=== PATIENT | male | born 1965 | race Caucasian/White ===

== ENCOUNTER → 2016-03-19 | Outpatient (CLI) | payer OTHER ==
--- NOTE | 2016-03-19 08:57 | DX ---
Left Knee , 3 weightbearing views, including a sunrise view History: Pain times several weeks Findings: No fracture deformity, effusion or arthritis is identified. There is no radiopaque foreign material. Overall mineralization is normal. The patellofemoral joint looks normal. Impression: No source for pain identified.
== END ==
LOC: BMCIMAGING 08:16
PROVIDERS: ATTEND Physician Assistant
DX: M25.562 Pain in left knee (principal)